=== PATIENT | male | born 1980 | race Caucasian/White ===

== ENCOUNTER 2017-08-02 16:03 | Outpatient (CLI) | payer BC ==
--- NOTE | 2017-08-02 19:24 | RAD ---
THREE VIEW LUMBAR SPINE 08/02/17 HISTORY: Back pain. Lateral, flexion and extension views lumbar spine is obtained. No evidence of иван or retrolisthesis seen. No evidence of fractures or subluxations seen. The numb ering of the lumbar vertebrae are difficult without AP view. Whether there are five or six nonribbear ing lumbar vertebrae I cannot determine definitively on the lateral views. No evidence of significant fractures or bony lesions seen otherwise. IMPRESSION: No evidence of disc space height loss, fractures, subluxations, or иван or retrolisthesis. POS: OFF
== END 2017-08-02 16:04 | disposition home or self-care (01) ==
LOC: TBSIIMAG 16:03
PROVIDERS: ATTEND Neurological Surgery
DX: M54.16 Radiculopathy, lumbar region (principal)
CPT/HCPCS: 72100